=== PATIENT | female | born 1950 ===

== ENCOUNTER 2017-07-30 06:24 | Day surgery (SDC) | payer OTHER ==
[2017-07-30 06:59] VITALS: BMI 30.7
[2017-07-30] MEDS ORDERED: Lidocaine Hydrochloride 5 ML INJ ONE (08:08)
[2017-07-30] MEDS ORDERED: Propofol 10 mg/ml Inj (20 ML) ONE (08:08)
[2017-07-30] MEDS ORDERED: Lactated Ringer's 500 ML IV SCH (08:30)
[2017-07-30 08:53] VITALS: TEMP 98.4
[2017-07-30 09:24] VITALS: PULSE 61; O2SAT 99
[2017-07-30 09:26] VITALS: BP 123/66; RESP 18
== END 2017-07-30 11:50 | disposition home or self-care (01) ==
LOC: C.ENDO 06:24
PROVIDERS: ATTEND Internal Medicine Gastroenterology
DX: R19.4 Change in bowel habit (principal); R10.13 Epigastric pain; K29.70 Gastritis, unspecified, without bleeding; K57.30 Diverticulosis of large intestine without perforation or abscess without bleeding; K63.5 Polyp of colon; K64.1 Second degree hemorrhoids
CPT/HCPCS: 43239; 45380; 88305; J2704; J7120

== ENCOUNTER 2018-07-06 07:37 | Day surgery (SDC) | payer OTHER ==
[2018-07-05 10:54] VITALS: BMI 31.8
[2018-07-06] MEDS ORDERED: Lactated Ringer's 1,000 ML IV ONE (10:20)
--- NOTE | 2018-07-06 10:23 | CP.SDSHP ---
Same Day Surgery H & P - History Proposed Procedure: COLONSCOPY Pre-Op Diagnosis: SEE NOTES - Previous Medical/Surgical History Cardiac: Hypertension Misc: Other Pain: 4.Moderate Pain - Allergies Allergies: Allergies No Known Allergies Allergy (Verified 07/06/18 08:23) - Physical Exam General Appearance: N Vital Signs: Vital Signs 07/06/18 08:20 Temperature 98.6 F Pulse Rate 80 Respiratory 20 Rate Blood Pressure 138/81 O2 Sat by Pulse 99 Oximetry Mental Status: Alert & Oriented x3 Neuro: WNL Heart: Other Lungs: WNL GI: Other - {Optional Preform as Required} Breast: WNL Abdomen: Other Rectal: Other Integument: WNL : WNL Ortho: WNL ENT: WNL - Impression Pt. Evaluated Today:Candidate for Anesthesia & Procedure: Yes - Date & Time Time: 10:23 Short Stay Discharge - Short Stay Discharge Admitting Diagnosis/Reason for Visit: RECTAL BLEEDING Disposition: HOME/ ROUTINE
[2018-07-06] MEDS ORDERED: Propofol 10 mg/ml Inj (20 ML) ONE ×2 (10:24→10:34)
[2018-07-06 11:13] VITALS: TEMP 98.1
[2018-07-06] MEDS ORDERED: Belladonna-Phenobarbital PO ONE (11:15)
[2018-07-06 11:38] VITALS: O2SAT 97
[2018-07-06 11:39] VITALS: BP 111/63; PULSE 66; RESP 14
== END 2018-07-06 11:53 | disposition home or self-care (01) ==
LOC: C.ENDO 07:37
PROVIDERS: ATTEND Specialist
DX: K62.5 Hemorrhage of anus and rectum (principal); K57.30 Diverticulosis of large intestine without perforation or abscess without bleeding
CPT/HCPCS: 45380; 88305; J2704; J3010; J7120